=== PATIENT | female | born 1955 | race Caucasian/White ===

== ENCOUNTER → 2020-02-22 | Outpatient (CLI) | payer MEDICARE ==
[~2020-02-22] MED LIST: ATOR20TA37 PO; METO25TA91 PO; SERT100T32 PO; WARF7.5T46 PO
[2020-02-22 12:43] LABS: BASOPHILS % (AUTO) 0 % (0-1); EOSINOPHILS % (AUTO) 1 % (1-7); LYMPHOCYTES % (AUTO) 26 % (22-44); MEAN CORPUSCULAR HEMOGLOBIN 30.6 pg (27.0-34.8); MEAN CORPUSCULAR HGB CONC 32.4 g/dL (32.4-35.8); MEAN PLATELET VOLUME 8.6 fL (7.4-10.4); MONOCYTES % (AUTO) 6 % (2-9); NEUTROPHILS % (AUTO) 67 % (42-75); PLATELET COUNT 283 x10^3/uL (130-400); RED BLOOD COUNT 4.75 x10^6/uL (3.82-5.3); RED CELL DISTRIBUTION WIDTH 12.8 % (9.6-15.2)
[2020-02-22 12:46] LABS: MD NO
[2020-02-22 12:51] LABS: ANION GAP 3 mmol/L (5-15); CALCIUM 9.2 mg/dL (8.5-10.1); CHLORIDE 104 mmol/L (98-107); CREATININE 0.74 mg/dL (0.55-1.02)
[2020-02-22 12:52] LABS: INTERNATIONAL NORMALIZED RATIO 2.56 (0.93-1.1); PROTHROMBIN TIME 26.9 Seconds (9.6-11.5)
== END | disposition home or self-care (01) ==
LOC: STAR 11:15
PROVIDERS: ATTEND Neurological Surgery
DX: Z01.812 Encounter for preprocedural laboratory examination (principal); Z20.828 Contact with and (suspected) exposure to other viral communicable diseases; M80.08XA Age-related osteoporosis with current pathological fracture, vertebra(e), initial encounter for fracture
CPT/HCPCS: 36415; 80048; 85025; 85610; 85730; 87635; 93005

== ENCOUNTER 2020-02-29 10:54 | Day surgery (SDC) | payer MEDICARE ==
[~2020-02-29] VITALS: Ht 188 cm; Wt 88.7 kg
[~2020-02-29 10:54] MED LIST changes: +BACITRACIN 50,000 UNIT ONE; +BACITRACIN OINT 500U/GM, 15 GM ONE; +BUPIVACAINE/PF 0.5% ONE; +EPINEPHRINE 1 MG/ML, 1ML ONE
[2020-02-29] MEDS ORDERED: CHLORHEXIDINE 15 ML UDC ONE (11:29)
[2020-02-29] MEDS ORDERED: LACTATED RINGERS 1,000 ML IV SCH (11:30)
[2020-02-29] MEDS ORDERED: CHLORHEXIDINE 15 ML UDC MM ONE (11:30)
[2020-02-29] MEDS ORDERED: OXYC-307 PO (12:13)
[2020-02-29 12:35] LABS: INTERNATIONAL NORMALIZED RATIO 1.07 (0.93-1.1); PROTHROMBIN TIME 11.3 Seconds (9.6-11.5)
[2020-02-29] MEDS ORDERED: MEPERIDINE/PF 25MG/0.5ML IVPush PRN (13:30)
[2020-02-29] MEDS ORDERED: OXYcodone 5 MG/5 ML ORAL.SOL UDC PO PRN (13:30)
[2020-02-29] MEDS ORDERED: PROMETHAZINE 25 MG/ML, 1ML IVPush PRN (13:30)
[2020-02-29] MEDS ORDERED: FENTANYL PF 100 MCG/2ML IV PRN (13:30)
[2020-02-29] MEDS ORDERED: HYDROmorphone 1 MG/ML, 1ML INJ IVPush PRN (13:30)
[2020-02-29] MEDS ORDERED: MIDAZOLAM 1 MG/ML, 2ML ONE (14:55)
[2020-02-29] MEDS ORDERED: FENTANYL PF 100 MCG/2ML ONE ×2 (14:56→17:17)
[2020-02-29] MEDS ORDERED: DEXAMETHASONE 4 MG/ML, 1ML ONE (15:17)
[2020-02-29] MEDS ORDERED: PHENYLEPHRINE 10 MG/ML ONE (15:17)
[2020-02-29] MEDS ORDERED: SUCCINYLCHOLINE 20 MG/ML, 10ML ONE (15:17)
[2020-02-29] MEDS ORDERED: ROCURONIUM 10 MG/ML,10ML ONE (15:17)
[2020-02-29] MEDS ORDERED: PROPOFOL 10 MG/ML, 20ML ONE (15:17)
[2020-02-29] MEDS ORDERED: CEFAZOLIN 1,000 MG ONE (15:17)
[2020-02-29] MEDS ORDERED: ONDANSETRON 2MG/ML, 2ML ONE (15:17)
[2020-02-29] MEDS ORDERED: MEPERIDINE/PF 25MG/ML,1ML ONE (16:46)
[2020-02-29] MEDS ORDERED: OXYcodone 5 MG/5 ML ORAL.SOL UDC ONE (17:17)
[2020-02-29] MEDS ORDERED: ALBUTEROL HFA 90 MCG/SPRAY ONE (18:08)
== END 2020-02-29 19:11 | disposition home or self-care (01) ==
LOC: OUT 10:54
PROVIDERS: ATTEND Neurological Surgery
DX: M80.08XA Age-related osteoporosis with current pathological fracture, vertebra(e), initial encounter for fracture (principal); I48.91 Unspecified atrial fibrillation; G43.909 Migraine, unspecified, not intractable, without status migrainosus; F41.9 Anxiety disorder, unspecified; F32.9 Major depressive disorder, single episode, unspecified; J43.9 Emphysema, unspecified; E11.40 Type 2 diabetes mellitus with diabetic neuropathy, unspecified; M06.9 Rheumatoid arthritis, unspecified; F17.210 Nicotine dependence, cigarettes, uncomplicated; Z88.2 Allergy status to sulfonamides; Z88.8 Allergy status to other drugs, medicaments and biological substances; Z98.890 Other specified postprocedural states; Z90.49 Acquired absence of other specified parts of digestive tract; Z90.710 Acquired absence of both cervix and uterus; Z20.828 Contact with and (suspected) exposure to other viral communicable diseases; Z79.2 Long term (current) use of antibiotics; Z79.899 Other long term (current) drug therapy
CPT/HCPCS: 22514; 22515; 36415; 72100; 85610; 85730; 86850; 86900; 87635; 88304; 88311; C1713; J0171; J0330; J0690; J1100; J2175; J2250; J2370; J2405; J2704; J3010; J7120

== ENCOUNTER 2020-04-04 05:32 | Day surgery (SDC) | payer MEDICARE ==
[2020-04-02 10:45] LABS: BASOPHILS % (AUTO) 1 % (0-1); EOSINOPHILS % (AUTO) 2 % (1-7); LYMPHOCYTES % (AUTO) 31 % (22-44); MEAN CORPUSCULAR HEMOGLOBIN 30.6 pg (27.0-34.8); MONOCYTES % (AUTO) 6 % (2-9); NEUTROPHILS % (AUTO) 60 % (42-75); PLATELET COUNT 254 x10^3/uL (130-400); RED BLOOD COUNT 4.92 x10^6/uL (3.82-5.3); RED CELL DISTRIBUTION WIDTH 12.8 % (9.6-15.2)
[2020-04-02 10:47] LABS: MD NO
[2020-04-02 10:49] LABS: ALANINE AMINOTRANSFERASE 13 U/L (12-78); ALBUMIN 3.7 g/dL (3.4-5.0); ANION GAP 3 mmol/L (5-15); CALCIUM 9.7 mg/dL (8.5-10.1); CHLORIDE 109 mmol/L (98-107); CREATININE 0.68 mg/dL (0.55-1.02)
[2020-04-02 10:51] LABS: ALKALINE PHOSPHATASE 142 U/L (45-117); BILIRUBIN,TOTAL 0.6 mg/dL (0.2-1.0); TOTAL PROTEIN 7.2 g/dL (6.4-8.2)
[~2020-04-04] VITALS: Ht 188 cm; Wt 84.4 kg
[~2020-04-04 05:32] MED LIST changes: -BACITRACIN 50,000 UNIT ONE; -BACITRACIN OINT 500U/GM, 15 GM ONE; -BUPIVACAINE/PF 0.5% ONE; +ENOX100S5 SQ; -EPINEPHRINE 1 MG/ML, 1ML ONE; +ERGO500017 PO; +OXYC-307 PO; +WARF10TA43 PO
[2020-04-04] MEDS ORDERED: BUPIVACAINE/PF 0.25% ONE (06:43)
[2020-04-04] MEDS ORDERED: EPINEPHRINE 1 MG/ML, 1ML ONE ×2 (06:43→08:52)
[2020-04-04] MEDS ORDERED: BACITRACIN 50,000 UNIT ONE (06:43)
[2020-04-04 06:52] VITALS: BP_SYST 123; BP_SYST 91; BP_DIAS 57; BP_DIAS 81
[2020-04-04] MEDS ORDERED: CHLORHEXIDINE 15 ML UDC MM ONE (07:00)
[2020-04-04] MEDS ORDERED: LACTATED RINGERS 1,000 ML IV SCH (07:00)
[2020-04-04 07:34] LABS: INTERNATIONAL NORMALIZED RATIO 1.13 (0.93-1.1)
[2020-04-04] MEDS ORDERED: FENTANYL PF 250 MCG/5ML ONE ×2 (08:51→09:48)
[2020-04-04] MEDS ORDERED: ALBUTEROL SULFATE 200 PUFFS/8.5 GR INH ONE (08:52)
[2020-04-04] MEDS ORDERED: ROCURONIUM 10 MG/ML,10ML ONE (08:52)
[2020-04-04] MEDS ORDERED: SUCCINYLCHOLINE 20 MG/ML, 10ML ONE (08:52)
[2020-04-04] MEDS ORDERED: PHENYLEPHRINE 10 MG/ML ONE (08:52)
[2020-04-04] MEDS ORDERED: DEXAMETHASONE 4 MG/ML, 1ML ONE (08:52)
[2020-04-04] MEDS ORDERED: ONDANSETRON 2MG/ML, 2ML ONE (08:52)
[2020-04-04] MEDS ORDERED: CEFAZOLIN 1,000 MG ONE (08:52)
[2020-04-04] MEDS ORDERED: PROPOFOL 50 ML ONE (10:09)
[2020-04-04] MEDS ORDERED: FENTANYL PF 100 MCG/2ML ONE ×2 (10:29→10:55)
[2020-04-04] MEDS ORDERED: ONDANSETRON 2MG/ML, 2ML IVPush PRN (10:30)
[2020-04-04] MEDS ORDERED: hydrALAzine 20 MG/ML, 1ML IV PRN (10:30)
[2020-04-04] MEDS ORDERED: METHOCARBAMOL 1,000 MG in DEXTROSE 5% 100 ML IV PRN (10:30)
[2020-04-04] MEDS ORDERED: FENTANYL PF 100 MCG/2ML IV PRN (10:30)
[2020-04-04] MEDS ORDERED: LABETALOL 5MG/ML, 20ML IV PRN (10:30)
[2020-04-04] MEDS ORDERED: MEPERIDINE/PF 25MG/0.5ML IVPush PRN (10:30)
[2020-04-04] MEDS ORDERED: OXYcodone 5 MG/5 ML ORAL.SOL UDC PO PRN (10:30)
[2020-04-04] MEDS ORDERED: ACETAMINOPHEN 325 MG TABLET PO PRN (10:30)
[2020-04-04] MEDS ORDERED: LORazepam 2 MG/ML, 1ML IVPush PRN (10:30)
[2020-04-04] MEDS ORDERED: EPHEDRINE 50 MG/ML, 1ML IVPush PRN (10:30)
[2020-04-04] MEDS ORDERED: PROMETHAZINE 25 MG/ML, 1ML IVPush PRN (10:30)
[2020-04-04] MEDS ORDERED: HYDROmorphone 1 MG/ML, 1ML INJ IVPush PRN (10:30)
[2020-04-04] MEDS ORDERED: OMNIPAQUE 180 MG/ML, 20ML VIAL ONE (10:45)
[2020-04-04] MEDS ORDERED: OXYcodone 5 MG/5 ML ORAL.SOL UDC ONE (10:55)
[2020-04-04] MEDS ORDERED: ACETAMINOPHEN 650 MG/20.3 ML UDC ONE (10:55)
[2020-04-04] MEDS ORDERED: CEPH-368 PO (12:52)
[2020-04-04] MEDS ORDERED: OXYC-302 PO (12:54)
== END 2020-04-04 12:35 | disposition home or self-care (01) ==
LOC: SDC 05:32 → EDSTATUS 08:30 → SDC 12:35
PROVIDERS: ATTEND Neurological Surgery
DX: M80.88XA Other osteoporosis with current pathological fracture, vertebra(e), initial encounter for fracture (principal); M54.5 Low back pain; J44.9 Chronic obstructive pulmonary disease, unspecified; I48.91 Unspecified atrial fibrillation; E11.9 Type 2 diabetes mellitus without complications; M06.9 Rheumatoid arthritis, unspecified; G43.909 Migraine, unspecified, not intractable, without status migrainosus; F41.9 Anxiety disorder, unspecified; F17.210 Nicotine dependence, cigarettes, uncomplicated; Z88.8 Allergy status to other drugs, medicaments and biological substances; Z88.5 Allergy status to narcotic agent; Z20.828 Contact with and (suspected) exposure to other viral communicable diseases; Z90.49 Acquired absence of other specified parts of digestive tract; Z90.710 Acquired absence of both cervix and uterus; Z79.2 Long term (current) use of antibiotics; Z83.3 Family history of diabetes mellitus; Z82.49 Family history of ischemic heart disease and other diseases of the circulatory system
CPT/HCPCS: 22513; 22515; 36415; 72080; 80053; 85025; 85610; 85730; 88307; 88311; C1713; J0171; J0330; J0690; J1100; J2370; J2405; J2704; J3010; J7120; Q9965; U0003